=== PATIENT | male | born 1955 | race Caucasian/White ===

== ENCOUNTER → 2021-08-27 | Outpatient (CLI) | payer MEDICARE, BC ==
[2021-08-27 16:18] LABS: Appearance, Urine Clear (Clear); Bilirubin, Urine Neg (Neg); Blood, Urine Neg (Neg); Color, Urine Yellow (P-Yellow); Glucose Qualitative, Urine Neg (Normal); Ketones, Urine Neg (Neg); Leukocyte Esterase, Urine Trace (Neg); Nitrite, Urine Neg (Neg); Protein, Urine Neg (Neg); Urobilinogen, Urine NORM (Normal)
[2021-08-27 16:21] LABS: Bacteria Not Seen /hpf; Red Blood Cells, Urine Not Seen /hpf (0-2); Squamous Epithelial Cells Not Seen /hpf (Few); White Blood Cells, Urine 0-2 /hpf (0-5)
== END | disposition home or self-care (01) ==
LOC: LAB SHORT 15:50
PROVIDERS: Family Medicine
DX: R41.3 Other amnesia (principal); R41.0 Disorientation, unspecified
CPT/HCPCS: 81001

== ENCOUNTER 2021-10-15 08:48 | Day surgery (SDC) | payer MEDICARE, BC ==
[~2021-10-15] VITALS: Ht 170.2 cm; Wt 78.0 kg
[~2021-10-15 08:48] MED LIST: Aspir 8181 MG PO; B-121000 MC6 PO; DICLOFENAC SOD100 G1 TOP; MULVITA PO; NAPR220 PO; NIAC500 PO; Saw Palmetto160 MG PO; ZYRTEC10 M1 PO
--- NOTE | 2021-10-15 09:57 | NUR ---
PT AMBULATES TO [facility] c STEADY GAIT. Patient confirms NPO status and agrees with scheduled surgery. History, Chart, Medications and Allergies reviewed before start of procedure. Lungs clear T/O to Auscultation. Patient States Post-Procedure ride home has been arranged. Patient reports completing Chlorhexadine shower X2 prior to admission to hospital.
--- NOTE | 2021-10-15 11:35 | NUR ---
[facility]21 [facility] TAP BLOCK INTRA OP PRIOR TO PROCEDURE.
--- NOTE | 2021-10-15 12:54 | NUR ---
RECIEVED REPORT FROM CLEVE GARBER RN. PATIENT ALERT AND ORIENTED. STATING HE HAS TO URINATE. ABLE TO REPOSITION SELF IN BED AND STAND ON OWN. AMBULATES WITH STEADY GAIT TO BATHROOM. REPORTS 0/10 PAIN.
--- NOTE | 2021-10-15 13:36 | NUR ---
PT HAS GAUZE DRESSING WITH CLEAR BANDAGE COVERING THAT IS CLEAN, DRY AND INTACT OF RIGHT INGUINAL REPAIR INCISION. NO REDNESS, SWELLING, OR HEAT PRESENT. PATIENT STATES HE IS IN NO PAIN. HE WENT TO THE BATHROOM AND REMAINED THERE FOR 25 MINUTES AFTER COMING TO DAY SURGERY. I CHECKED ON HIM THREE TIMES, ENTERING THE BATHROOM TO ASSESS HOW ALERT HE WAS AND IF HE WAS IN PAIN. HE REPORTED JUST NOT BEING ABLE TO URINATE. AFTER 25 MINUTES MERISSA GREGORIO RN AND I ENTERED THE BATHROOM AND TALKED HIM INTO COMING BACK TO BED TO REST WHILE WE WORK OUT A PLAN. I GOT PT BACK TO BED, USED THE BLADDER SCANNER AND FOUND 471 ML OF URINE IN THE BLADDER. I NOTIFIED DR. VICKERS, WHO THEN GAVE ME A VERBAL ORDER TO DRAIN ABOUT HALF OF THE URNINE FROM BLADDER WITH A STRAIGHT CATHETER AND NOT DISCHARGE HOME UNTIL PT CAN URINATE ON OWN. 275 ML OF URINE STRAIGHT CATHETERIZED FROM BLADDER. PT STATES FEELING RELIEF AND REQUESTING PO FLUIDS. TOLERATING PO FLUIDS.
--- NOTE | 2021-10-15 14:36 | NUR ---
PT WAS ABLE TO AMBULATE TO BATHROOM WITH STEADY GAIT AND URINATE 50 ML OF CLEAR, LIGHT YELLOW URINE. HE STATES HE FEELS NO PRESSURE OR PAIN OVER THE BLADDER, JUST A LITTLE DISCOMFORT FROM HAVING HAD THE CATHETER TODAY.
--- NOTE | 2021-10-15 14:50 | NUR ---
Patient up to Ambulate independently. Gait steady. Discharge instructions reviewed with patient. Patient verbalizes understanding. Copy given to patient to take home. Dressing to procedure site clean, dry, intact with no visible drainage, swelling, erythema or bruising noted. Patient States Post-Procedure ride home has been arranged. Discharged via wheelchair to private car for ride home. ALL BELONGINGS RETURNED TO PATIENT THAT HE CAME WITH. PT INSTRUCTED ON URINARY RETENTION AND WHEN TO SEEK MEDICAL TREATMENT.
== END 2021-10-15 23:07 | disposition home or self-care (01) ==
LOC: ORSCMMR 08:48 → ORD 10:30 → ORSCMMR 23:07
PROVIDERS: Surgery
PROC: 0YU50JZ Supplement Right Inguinal Region with Synthetic Substitute, Open Approach (ICD-10-PCS; principal; 2021-10-15 10:30)
DX: K40.91 Unilateral inguinal hernia, without obstruction or gangrene, recurrent (principal); E03.9 Hypothyroidism, unspecified; N18.30 Chronic kidney disease, stage 3 unspecified; Z79.899 Other long term (current) drug therapy; Z79.82 Long term (current) use of aspirin
CPT/HCPCS: C1781; J0690; J1100; J1885; J2250; J2370; J2405; J2704; J3010; J7120

== ENCOUNTER 2024-12-24 06:57 | Day surgery (SDC) | payer MEDICARE, BC ==
[~2024-12-24] VITALS: Ht 170.2 cm; Wt 74.4 kg
[2024-12-24] VITALS (11 sets, daily range): BP systolic 84–135; BP diastolic 64–114
[~2024-12-24 06:57] MED LIST changes: +ZYRTEC10 M2 PO
[2024-12-24] MEDS ORDERED: NS 250 ML IV ONE (07:18)
[2024-12-24] MEDS ORDERED: Heparin Sodium 1000 Units/ML 10ML MDV ONE ×2 (07:18→08:13)
[2024-12-24] MEDS ORDERED: Nitroglycerin 2 MG/20 ML BTL ONE (07:18)
[2024-12-24] MEDS ORDERED: NS 1,000 ML IV ONE ×2 (07:18→07:56)
[2024-12-24] MEDS ORDERED: Verapamil HCL 2.5 MG/ML 2ML Injection ONE (07:18)
[2024-12-24] MEDS ORDERED: Midazolam HCl 1MG / ML 2ML Vial ONE ×2 (07:54→08:58)
[2024-12-24] MEDS ORDERED: FentaNYL Citrate 50 MCG/ML 2 ML Injection ONE (07:54)
[2024-12-24] MEDS ORDERED: NiCARdipine HCL 1,000 MCG/5 ML SYR ONE (08:47)
--- NOTE | 2024-12-24 10:20 | NUR ---
PT RETURNED TO RECOVERY ROOM AT 0955 IN BED. RIGHT FEMORAL GROIN SITE SOFT NON-TENDER WTIH NO HEMATOMA, NO BLEEDING AND INTACT DRESSING. RIGHT ULNAR TR BAND SITE SOFT NON-TENDER WITH NO HEMATOMA, NO PULSATILE BLEEDING AND RIGHT WRIST BOARD IN PLACE. PT DENIES CHEST PAIN. CALL LIGHT IN REACH.
--- NOTE | 2024-12-24 10:41 | NUR ---
NO CHANGES TO R GROIN OR R ULNAR SITES.
--- NOTE | 2024-12-24 10:42 | NUR ---
DR CLAY INFORMED OF BRADYCARDIA/HYPOTENSION; NO NEW ORDERS.
--- NOTE | 2024-12-24 11:08 | NUR ---
NO CHANGES TO RIGHT ULNAR OR R FEM GROIN SITES.
--- NOTE | 2024-12-24 12:08 | NUR ---
10 CC OF AIR REMOVED OVER 10 MIN OUT OF NOW DELFLATED RIGHT ULNAR TR BAND. RIGHT ULNAR SITE STILL SOFT NON-TENDER WITH NO HEMATOMA, NO PULSATILE BLEEDING AND WRIST BOARD IN PLACE. DISCHARGE INSTURCTIONS REVIEWED ALL QUESTIONS ANSWERED.
--- NOTE | 2024-12-24 12:27 | NUR ---
PATIENT VOIDING PER URINAL. URINE WNL. RIGHT ULNAR SITE C/D/I SOFT/NONTENDER, NO EVIDENCE OF BLEEDING. RIGHT GROIN SITE C/D/I, SOFT/NONTENDER, NO EVIDENCE OF BLEEDING. VSS ON RA.
--- NOTE | 2024-12-24 13:22 | NUR ---
PT AMBULATED TO TO VOID. DR CLAY IN ROOM TO SEE PT. DEFLATED R ULNAR TR BAND REMOVED AND POLYMEM PLACED OVER R ULNAR SITE WITH WRIST BOARD IN PLACE. R ULNAR AND R FEM SITES STILL SOFT NON-TENDER WITH NO HEMATOMA AND NO BLEEDING. 20 IV DISCONTINUED FROM LEFT AC WITH INTACT CANNULA. PT ESORTED OUT VIA WHEELCHAIR ESCORT. 20 G IV DC'D FROM LEFT AC WITH INTACT CANNULA.
== END 2024-12-24 16:55 | disposition home or self-care (01) ==
LOC: MHTC 06:57
DX: R94.39 Abnormal result of other cardiovascular function study (principal); E03.9 Hypothyroidism, unspecified; E78.00 Pure hypercholesterolemia, unspecified; Z79.82 Long term (current) use of aspirin; Z79.899 Other long term (current) drug therapy
CPT/HCPCS: 76937; 93454; 99152; 99153; A9270; C1760; C1769; C1887; C1894; J1644; J2250; J3010; J7030; J7050; Q9967

== ENCOUNTER 2025-08-17 08:22 | Day surgery (SDC) | payer MEDICARE, OTHER ==
[2025-07-28 14:11] VITALS: BP 134/77
[~2025-08-17] VITALS: Ht 170.2 cm; Wt 74.4 kg
[2025-08-17] VITALS (15 sets, daily range): BP systolic 95–147; BP diastolic 60–82
[~2025-08-17 08:22] MED LIST changes: +ASPI81CH PO; +CeFAZolin Sodium 2,000 MG in NS 100 ML IV SCH; +Chlorhexidine Mouth Care 15 ML UDC MT SCH; +Ropivacaine 0.5% HCl/Pf 123.125 MG,EPINEPHrine HCL 0.25 MG,Ketorolac Tromethamine 15 MG... INFIL SCH; +Tranexamic Acid 100 ML IV SCH; +[UNRECOGNIZED DRUG - CODE] PO
[2025-08-17] MEDS ORDERED: Rocuronium Bromide 10 MG/ML 5ML Injection IV ONE (09:00)
[2025-08-17] MEDS ORDERED: Ondansetron HCl 2 MG / ML 2ML Vial IV PRN ×2 (09:05→10:15)
[2025-08-17] MEDS ORDERED: HYDROmorphone HCl/Pf 1MG SYR IV PRN ×2 (09:05→10:20)
[2025-08-17] MEDS ORDERED: FentaNYL Citrate 50 MCG/ML 2 ML Injection IV PRN ×2 (09:05)
[2025-08-17] MEDS ORDERED: Albuterol 2.5 MG/3 ML VIAL INH PRN (09:05)
--- NOTE | 2025-08-17 09:36 | NUR ---
Ambulatory in Day Surgery accompanied by spouse Elda. History, Chart, Medications and Allergies reviewed before start of procedure. Patient confirms NPO status and agrees with scheduled surgery. Pre-Op teaching done. Pt verbalizes understanding. Patient States Post-Procedure ride home has been arranged. Pt belongings placed underneath lesa for safekeeping. Pt glasses given to his spouse for safekeeping. Pt hearing aids x2 left in place for now, OR team notified. Pt has ring on left finger that cannot be removed, jewelry taped and waiver signed, OR team notified.
[2025-08-17] MEDS ORDERED: FLU VACC TS2025(65UP)/MF59C/PF 45 MCG/0.5 ML SYRINGE IM SCH (10:20)
[2025-08-17] MEDS ORDERED: Metoclopramide HCl 5MG / ML 2ML Vial IV PRN (10:25)
[2025-08-17] MEDS ORDERED: Magnesium Hydroxide Conc 10 ML UDC PO PRN (10:25)
[2025-08-17] MEDS ORDERED: Ondansetron HCl 2 MG / ML 2ML Vial ONE (11:21)
[2025-08-17] MEDS ORDERED: Dexamethasone Sod Phos 10 MG/ML 1ML VIAL ONE (11:21)
[2025-08-17] MEDS ORDERED: ePHEDrine Sulfate 50 MG/ML 1ML Injection ONE (11:34)
[2025-08-17] MEDS ORDERED: Ketorolac Tromethamine 15mg Vial IV SCH (12:00)
[2025-08-17] MEDS ORDERED: Ketorolac Tromethamine 30mg Vial ONE (14:10)
--- NOTE | 2025-08-17 14:32 | NUR ---
ARRIVAL TO SURGICAL UNIT VIA HOSPITAL BED, ALERT, ORIENTED, & PLEASANT. [place]. ASSESSMENT CHARTED. DENIES PAIN OR N/V. SNACKS GIVEN. CRYOTHERAPY IN USE.
[2025-08-17] MEDS ORDERED: ACET500 PO (17:19)
[2025-08-17] MEDS ORDERED: OXYC5 PO (17:19)
--- NOTE | 2025-08-17 18:20 | NUR ---
DISCHARGE WORKED WELL w/ THERAPY. EATING, DRINKING, & VOIDED x 1. SURG SITE WNL. DENIES PAIN. EXCITED TO DC HOME. POLAR PACK SENT WITH. ESCORTED OUT VIA WC.
[2025-08-17] MEDS ORDERED: CeFAZolin Sodium 2,000 MG in NS 100 ML IV SCH (19:00)
== END 2025-08-17 18:18 | disposition home or self-care (01) ==
LOC: ORSCMMR 08:22 → ORD 11:00 → SURS 14:21 → ORSCMMR 18:18
PROVIDERS: Orthopaedic Surgery
PROC: 0SRC0J9 Replacement of Right Knee Joint with Synthetic Substitute, Cemented, Open Approach (ICD-10-PCS; principal; 2025-08-17 11:00)
DX: M17.11 Unilateral primary osteoarthritis, right knee (principal); E78.5 Hyperlipidemia, unspecified; Z79.82 Long term (current) use of aspirin
CPT/HCPCS: 73560-RT; 97110; 97116; 97161; 97530; A9270; C1713; C1776; J0166; J0690; J0735; J1100; J1885; J2405; J2704; J2795; J7120